=== PATIENT | male | born 2000 ===

== ENCOUNTER 2025-02-08 05:15 | Emergency (ER) | payer BC, SELFPAY ==
[2025-02-08 05:23] VITALS: BP 138/77
--- NOTE | 2025-02-08 08:13 | ED.GENMED ---
History of Present Illness
General
Chief Complaint: Foreign Body Removal
Source: patient
Exam Limitations: none
Time Seen by Provider: 02/08/25 07:56
History of Present Illness
History of Present Illness:
24yoM with no significant past medical history presenting for evaluation of foot foreign bodies. Patient states that 24 hours ago, he stepped on a light bulb as well as some paint while he was barefoot. He went to urgent care and states 'nothing
was done.' He feels that there are still glass pieces stuck in his foot and decided to come to the ED. Unknown last Tdap.
Phy Exam
General Physical Exam
General Presentation: well appearing and no apparent distress
General Skin: warm and dry
General Habitus: normal
General Mental: alert
Neurological Exam
Neurological Exam: alert
[place] Coma Scale
Eye Opening: Spontaneous
Verbal Response: Oriented
Motor Response: Obeys Commands
GCS Total Score: 15
Skin Exam
Skin Exam: warm/dry and other (Several superficial wounds noted to dorsum of bilateral feet, none that require suture repair. Both feet with large amount of dried paint/dirt. )
Psychiatric Exam
Psychiatric Exam: normal mood/affect
Course
Orders/Labs/Results
Orders:
Orders
02/08/25 06:54
CR Foot - Left Min 3 Views Urgent
Comment:
Reason For Exam: stepped on glass
Foot, Right 3 View [CR Foot - Right Min 3 Views] Urgent
Comment:
Reason For Exam: stepped on glass
02/08/25 09:31
Tetanus/Diphth/Acelpertussis [Adacel] 0.5 ml IM .ONCE ONE
Vital Signs
Initial and Last Documented VS:
Initial Vital Signs
Temp Pulse Resp BP Pulse Ox
97.9 F 78 18 138/77 98
02/08/25 05:23 02/08/25 05:23 02/08/25 05:23 02/08/25 05:23 02/08/25 05:23
Last Documented Vital Signs
Temp Pulse Resp BP Pulse Ox
97.5 F 78 18 138/77 98
02/08/25 05:23 02/08/25 05:23 02/08/25 05:23 02/08/25 05:23 02/08/25 08:14
Procedures
Foreign Body Removal-Skin
Wound explored and foreign body removed?: Yes
Foreign body removed using: irrigation and forceps
Foreign body removed: partially
MDM/Problems Addressed
Differential Diagnosis Includes:
24yoM here with retained glass foreign bodies in feet after stepping on a light bulb yesterday while barefoot. Both feet are covered in dried pain and dirt with superficial wounds/cuts. X-rays obtained in triage show retained foreign bodies
particularly near the toes. Feet were cleaned several times with Betadine, alcohol, and saline and paint was unable to be completely removed. Glass FB in the L lateral foot was removed with forceps. Remainder of the glass was unable to be
visualized. These may have been removed with cleaning although patient still reports FB sensation. At this point, will sent patient to podiatry for f/u. Tdap updated and he was started on a course of Keflex for infection prevention.
*Pulse Oximetry
SaO2: 98
Oxygen Mode of Delivery: Room air
Patient hypoxic: no
*Critical Care Note
Total Time (30-74mins, 75-104mins- exclusive of procedures): Not Applicable
ED Attending Note
-
Portions of this chart may have been created with voice recognition software.� Occasional wrong word or��sound alike� substitutions may have occurred due to the inherent limitations of voice recognition software.
Discharge Plan
Departure
Patient Disposition: Home (Routine Discharge)
Date of Disposition: 02/08/25
Time of Disposition: 09:38
Patient with high blood pressure during this ER visit?: No
Discharge Problem:
Glass foreign body in dorsum of foot
Instructions: Foreign Body in Skin (DC)
Prescriptions:
New
cephalexin 500 mg capsule
500 mg PO Q6H Qty: 20 0RF
Referrals:
Santos Murray MD [Active, Podiatry]
UNKNOWN - PT DOES,NOT KNOW [Family Provider]
Activity Restrictions/Additional Instructions:
Please wash your feet when you get home. Take antibiotics as prescribed to prevent infection.
Please call tomorrow to schedule a follow-up appointment with podiatry.
Interventions
Interventions:
*Risk Screen - Suicide Last Done: 02/08/25 05:23
*General Assessment Last Done: 02/08/25 05:23
*Neglect/Abuse Screening Last Done: 02/08/25 05:23
*ED- Fall Risk Assessment Last Done: 02/08/25 06:57
*ED COVID-19 Vaccine History Last Done: 02/08/25 05:23
*ED Influenza Vaccine History Last Done: 02/08/25 05:23
Discharge Date and Time
Print Language: OCCITAN
[2025-02-08] MEDS: ADACEL 0.5 ML IM (09:43)
[2025-02-08 09:50] VITALS: BP 124/74
== END 2025-02-08 09:52 | disposition home or self-care (01) ==
LOC: EMR 05:15
PROVIDERS: EMERGENCY PHYSICIAN Emergency Medicine
DX: S90.852A Superficial foreign body, left foot, initial encounter (principal); W25.XXXA Contact with sharp glass, initial encounter; W45.8XXA Other foreign body or object entering through skin, initial encounter; Z23 Encounter for immunization
CPT/HCPCS: 99283; 90471; 73630; 90715